=== PATIENT | male | born 2000 | race Hispanic/Latino ===

== ENCOUNTER 2020-10-01 21:40 | Emergency (ER) | payer BC ==
[~2020-10-01] VITALS: Ht 180.3 cm; Wt 106.1 kg
[2020-10-01] MEDS ORDERED: APAP-CODEINE 300/30MG TAB PO ONE (22:00)
[2020-10-01] MEDS ORDERED: AMOX-429 PO (23:11)
[2020-10-01] MEDS ORDERED: TRAM1TAB PO (23:27)
[2020-10-01] MEDS ORDERED: CEPH500B PO (23:27)
[2020-10-01] MEDS ORDERED: CEPHALEXIN 500 MG CAPSULE PO SCH (23:30)
[2020-10-01] MEDS ORDERED: APAP-CODEINE 300/30MG TAB ONE (23:40)
== END 2020-10-01 23:48 | disposition home or self-care (01) ==
LOC: EDH 21:55
DX: S90.111A Contusion of right great toe without damage to nail, initial encounter (principal); L03.031 Cellulitis of right toe; Z79.899 Other long term (current) drug therapy; X58.XXXA Exposure to other specified factors, initial encounter; Y93.89 Activity, other specified; Y92.89 Other specified places as the place of occurrence of the external cause; Y99.8 Other external cause status
CPT/HCPCS: 73660